=== PATIENT | female | born 1965 | race Caucasian/White ===

== ENCOUNTER 2020-05-15 07:27 | Outpatient (CLI) | payer OTHER, SELFPAY ==
[2020-05-15 07:38] LABS: Basophils Absolute Auto 0.04 K/mm3 (0.00-0.10); Basophils Percent Auto 0.5 % (0.0-1.0); Eosinophils Absolute Auto 0.11 K/mm3 (0.02-0.50); Eosinophils Percent Auto 1.5 % (1.0-6.0); Hematocrit 38.9 % (35.0-49.0); Hemoglobin 12.6 g/dL (12.0-15.0); Immature Granulocyte Absolute 0.03 K/mm3 (0.00-0.00); Immature Granulocyte Percent A 0.4 % (0.0-0.0); Lymphocytes Absolute Auto 3.05 K/mm3 (1.10-4.50); Lymphocytes Percent Auto 41.8 % (18.0-42.0); Mean Corpuscular HGB Conc 32.4 g/dL (32.0-36.0); Mean Corpuscular Volume 95.8 fL (78.0-102.0); Mean Platelet Volume 9.2 fl (9.2-11.8); Monocytes Absolute Auto 0.54 K/mm3 (0.10-0.90); Monocytes Percent Auto 7.4 % (2.0-11.0); Neutrophils Absolute Auto 3.5 K/mm3 (1.7-7.2); Neutrophils Percent Auto 48.4 % (50.0-70.0); Platelet Count Result 308 K/mm3 (150-420); Red Blood Count 4.06 M/mm3 (4.20-5.40); White Blood Count 7.3 K/mm3 (4.8-10.8)
[2020-05-15 08:32] LABS: Alanine Aminotransferase 22 U/L (14-59); Albumin Level 3.6 g/dL (3.4-5.0); Alkaline Phosphatase 107 U/L (46-116); Anion Gap 8 mmol/L (8-16); Aspartate Amino Transferase 17 U/L (15-37); Bilirubin,Total 0.3 mg/dL (0.00-1.00); Blood Urea Nitrogen 13 mg/dL (7-18); Calcium 9.7 mg/dL (8.5-10.1); Carbon Dioxide 29 mmol/L (21-32); Chloride 106 mmol/L (98-108); Cholesterol 173 mg/dL (0-200); Estimated Glomerular Filt Rate > 60; Glucose 88 mg/dL (70-99); HDL Direct 74 mg/dL (40-60); LDL Cholesterol Calculated 82 mg/dL (<130); Osmolality Calculated 295 mOsm/kg (285-295); Potassium 4.4 mmol/L (3.5-5.1); Sodium 143 mmol/L (136-145); Total Protein 6.9 g/dL (6.4-8.2); Triglycerides 86 mg/dL (0-150)
== END 2020-05-15 07:28 | disposition home or self-care (01) ==
PROVIDERS: PCP Nurse Practitioner Family; Visit Provider Nurse Practitioner Family
DX: E78.00 Pure hypercholesterolemia, unspecified (principal)
CPT/HCPCS: 36415; 80053; 80061; 85025

== ENCOUNTER 2020-07-31 14:59 | Outpatient (CLI) | payer OTHER, SELFPAY ==
[2020-07-31 16:08] LABS: Free T4 Free Thyroxine 0.89 ng/dL (0.76-1.46)
== END 2020-07-31 15:00 | disposition home or self-care (01) ==
LOC: CHSLAB 15:02
PROVIDERS: PCP Nurse Practitioner Family
DX: E03.9 Hypothyroidism, unspecified (principal)
CPT/HCPCS: 36415; 84439; 84443; 84481

== ENCOUNTER 2021-01-16 14:04 | Outpatient (CLI) | payer OTHER, SELFPAY ==
[2021-01-16 15:02] LABS: Free T4 Free Thyroxine 1.03 ng/dL (0.76-1.46); Thyroid Stimulating Hormone 2.53 uIU/mL (0.36-3.74)
== END 2021-01-16 14:05 | disposition home or self-care (01) ==
PROVIDERS: PCP Nurse Practitioner Family
DX: E03.9 Hypothyroidism, unspecified (principal)
CPT/HCPCS: 36415; 84439; 84443

== ENCOUNTER 2021-01-25 17:00 | Outpatient (CLI) | payer OTHER, SELFPAY ==
[2021-01-25 17:24] LABS: Hemoglobin A1C 6.1 % (<5.7)
[2021-01-25 18:00] LABS: Cholesterol 193 mg/dL (0-200); HDL Direct 79 mg/dL (40-60); LDL Cholesterol Calculated 96 mg/dL (<130); Triglycerides 92 mg/dL (0-150)
== END 2021-01-25 17:01 | disposition home or self-care (01) ==
LOC: CHSLAB 17:03
PROVIDERS: PCP Family Medicine; Visit Provider Family Medicine
DX: E11.9 Type 2 diabetes mellitus without complications (principal); E78.00 Pure hypercholesterolemia, unspecified
CPT/HCPCS: 36415; 80061; 83036

== ENCOUNTER 2021-02-06 10:30 | Outpatient (CLI) | payer SELFPAY | END 2021-02-06 10:31 | disposition home or self-care (01) | LOC: CHSOUTPT 10:33 | PROVIDERS: PCP Family Medicine; Visit Provider Family Medicine | DX: E66.01 Morbid (severe) obesity due to excess calories (principal); R73.03 Prediabetes | CPT/HCPCS: 99199 ==

== ENCOUNTER 2021-02-07 15:16 | Outpatient (CLI) | payer OTHER, SELFPAY ==
--- NOTE | ~2021-02-07 | XR_ITS ---
EXAMINATION: XR hand BI arthritis min 3V DATE: 02/07/2021 15:38 INDICATION: Bilateral hand pain. TECHNIQUE: 4 views of right hand and 4 views of left hand on a total of 7 radiographs were obtained. COMPARISON: None. FINDINGS: RIGHT HAND: Bone alignment is normal. No fracture. There is mild osteoarthritis of triscaphe joint, s econd metacarpophalangeal joint, first interphalangeal joint, and second and third distal interphalan geal joints. LEFT HAND: Bone alignment is normal. No fracture. There is mild osteoarthritis of first carpometacarp al joint, first and second metacarpophalangeal joints, first interphalangeal joint, and second and th ird distal interphalangeal joints. IMPRESSION: 1. Mild polyarticular osteoarthritis. Reviewed, dictated and finalized at location A.
== END 2021-02-07 15:17 | disposition home or self-care (01) ==
LOC: CHSIMG 15:18
PROVIDERS: PCP Family Medicine; Visit Provider Family Medicine
DX: M79.641 Pain in right hand (principal); M79.642 Pain in left hand; M15.9 Polyosteoarthritis, unspecified
CPT/HCPCS: 73130

== ENCOUNTER 2021-03-07 18:28 | Outpatient (NON) | payer OTHER, SELFPAY | END 2021-03-07 18:29 | disposition home or self-care (01) | LOC: CHSLAB 18:29 | PROVIDERS: PCP Family Medicine; Visit Provider Nurse Practitioner Family | DX: N95.0 Postmenopausal bleeding (principal) | CPT/HCPCS: 36415; 87480; 87510; 87660; 88175; G0145 ==

== ENCOUNTER 2021-03-19 12:43 | Outpatient (CLI) | payer OTHER, SELFPAY ==
--- NOTE | ~2021-03-19 | CT_ITS ---
EXAMINATION: CT sinus wo con DATE: 03/19/2021 13:02 INDICATION: Chronic sinusitis TECHNIQUE: Computed tomography (CT) of the paranasal sinuses was performed without intravenous contra st. The dose-length product was 295.03 mGy-cm. Iterative reconstruction technique was employed. COMPARISON: None FINDINGS: There is mild mucosal thickening of the maxillary sinuses. Mastoids are pneumatized. No air -fluid levels or mucoperiosteal reaction. There is basal septal deviation. No air-fluid levels. Ostio meatal units are patent. IMPRESSION: 1. Mild maxillary sinus disease. Reviewed, dictated and finalized at location A.
== END 2021-03-19 12:44 | disposition home or self-care (01) ==
LOC: CHSIMG 12:44
PROVIDERS: PCP Family Medicine; Visit Provider Family Medicine
DX: J32.9 Chronic sinusitis, unspecified (principal)
CPT/HCPCS: 70486

== ENCOUNTER 2021-03-20 10:40 | Outpatient (CLI) | payer OTHER, SELFPAY | END 2021-03-20 10:41 | disposition home or self-care (01) | LOC: CHSIMG 10:41 | PROVIDERS: PCP Family Medicine; Visit Provider Nurse Practitioner Family | DX: Z53.8 Procedure and treatment not carried out for other reasons (principal) | CPT/HCPCS: 99199 ==

== ENCOUNTER 2021-05-01 12:51 | Outpatient (CLI) | payer OTHER, SELFPAY ==
--- NOTE | ~2021-05-01 | MM_ITS ---
EXAMINATION: MM screening [facility] BI w kian HISTORY: Screening mammogram TECHNIQUE: Craniocaudal and mediolateral oblique 3-D tomosynthesis images were obtained and synthetic 2-D images were generated. CAD analysis was submitted and interpreted. COMPARISON: No prior mammogram is available for comparison at this institution. BREAST PARENCHYMAL COMPOSITION: There are scattered areas of fibroglandular density. FINDINGS: There is no evidence of suspicious mass, calcification, or architectural distortion to sugg est malignancy in either breast. There has been no suspicious interval change. IMPRESSION: 1. No mammographic evidence of malignancy. 2. Recommend routine screening mammography in one year. BI-RADS Category 1: Negative Reviewed, dictated and finalized at location A.
[2021-05-01 13:45] LABS: Rheumatoid Factor Screen Negative (Negative)
[2021-05-04 07:51] LABS: ANA Cascade Screen Negative (Negative)
== END 2021-05-01 12:52 | disposition home or self-care (01) ==
LOC: CHSIMG 12:54
PROVIDERS: PCP Family Medicine; Visit Provider Nurse Practitioner Family
DX: M79.641 Pain in right hand (principal); M79.642 Pain in left hand; Z12.31 Encounter for screening mammogram for malignant neoplasm of breast
CPT/HCPCS: 36415; 77063; 77067; 86038; 86430

== ENCOUNTER 2021-07-13 11:05 | Outpatient (CLI) | payer OTHER, SELFPAY ==
[2021-07-13 11:31] LABS: Hematocrit 39.8 % (35.0-49.0); Hemoglobin 12.8 g/dL (12.0-15.0); Mean Corpuscular HGB Conc 32.2 g/dL (32.0-36.0); Mean Corpuscular Hemoglobin 30.3 pg (27.0-31.0); Mean Corpuscular Volume 94.3 fL (78.0-102.0); Mean Platelet Volume 9.3 fl (9.2-11.8); Platelet Count Result 295 K/mm3 (150-420); Red Blood Count 4.22 M/mm3 (4.20-5.40); Red Cell Distribution Width 12.6 % (11.6-14.4)
[2021-07-13 12:42] LABS: Alanine Aminotransferase 30 U/L (14-59); Albumin Level 3.6 g/dL (3.4-5.0); Alkaline Phosphatase 117 U/L (46-116); Anion Gap 7 mmol/L (8-16); Aspartate Amino Transferase 17 U/L (15-37); Bilirubin,Total 0.4 mg/dL (0.00-1.00); Blood Urea Nitrogen 14 mg/dL (7-18); Calcium 8.8 mg/dL (8.5-10.1); Carbon Dioxide 31 mmol/L (21-32); Chloride 108 mmol/L (98-108); Cholesterol 192 mg/dL (0-200); Estimated Glomerular Filt Rate > 60; Free T3 2.64 pg/mL (2.18-3.98); Free T4 Free Thyroxine 0.86 ng/dL (0.76-1.46); Glucose 89 mg/dL (70-99); HDL Direct 66 mg/dL (40-60); LDL Cholesterol Calculated 110 mg/dL (<130); Osmolality Calculated 301 mOsm/kg (285-295); Potassium 4.9 mmol/L (3.5-5.1); Sodium 146 mmol/L (136-145); Thyroid Stimulating Hormone 3.29 uIU/mL (0.36-3.74); Total Protein 6.6 g/dL (6.4-8.2); Triglycerides 79 mg/dL (0-150)
== END 2021-07-13 11:06 | disposition home or self-care (01) ==
PROVIDERS: PCP Family Medicine; Visit Provider Family Medicine
DX: E03.9 Hypothyroidism, unspecified (principal); E78.00 Pure hypercholesterolemia, unspecified
CPT/HCPCS: 36415; 80053; 80061; 84439; 84443; 84481; 85027

== ENCOUNTER 2021-08-08 18:35 | Emergency (ER) | payer OTHER, SELFPAY ==
[2021-08-08] VITALS (7 sets, daily range): BP systolic 132–171; BP diastolic 78–99; PULSE 72–94; RESP 18–20; TEMP 36.2–36.9; O2SAT 94–99
--- NOTE | ~2021-08-08 | CT_ITS ---
EXAMINATION: CTA chest PE protocol DATE: 08/08/2021 20:43 INDICATION: Chest pain radiating to back. Elevated d-dimer. TECHNIQUE: Computed tomography angiography (CTA) of the chest was performed with 100 mL Omnipaque-350 intravenous contrast timed to evaluate the pulmonary arteries. Coronal maximum intensity projection 3D-reconstructions were created by the technologist. Automated exposure control and iterative reconst ruction technique were employed. Exam dose: 942.02 mGy-cm total exam DLP. COMPARISON: None. FINDINGS: There is diagnostic contrast enhancement of the pulmonary arteries and no evidence of pulmo nary embolism. No thoracic aortic aneurysm or dissection. No hilar or mediastinal mass lesion or lymphadenopathy. Mild cardiomegaly. No pericardial or pleural effusion. Mild discoid atelectasis or scarring of the lingula. No pulmonary infiltrate or consolidation. Small sliding hiatal hernia. Normal morphology of the adrenal glands. IMPRESSION: No evidence of pulmonary embolism Small sliding hiatal hernia Reviewed, dictated and finalized at Location A. Reviewed, dictated and finalized at location A.
--- NOTE | ~2021-08-08 | CT_ITS ---
EXAMINATION: CT abdomen pelvis w con DATE: 08/08/2021 21:09 INDICATION: Abdominal pain radiating to the posterior aspect of the abdomen TECHNIQUE: Computed tomography (CT) of the abdomen and pelvis was performed with 100 cc Omnipaque 350 intravenous contrast. Automated exposure control and iterative reconstruction technique were employe d. Exam dose: 1438.24 mGy-cm total exam DLP. COMPARISON: None. FINDINGS: There is mild discoid atelectasis or scarring in the anterior basilar segment of the left l ower lobe and minimal bilateral lower lobe dependent atelectasis. Heart size is borderline. No pericardial or pleural effusion. Small sliding hiatal hernia. The liver, gallbladder, bile ducts, pancreas, pancreatic duct and spleen are unremarkable. Normal mor phology of the adrenal glands. There is an indeterminate approximately 7 mm hypodense lesion in the posterior lower pole of the left kidney. This might be a hyperdense cyst although solid neoplasm is not excluded. Otherwise no renal mass lesion is evident. No hydroureteronephrosis. The urinary bladder, uterus and adnexal areas are unremarkable. There is atherosclerotic calcification of the abdominal aorta and iliac arteries but no abdominal aor tic aneurysm. No intraperitoneal or retroperitoneal or pelvic mass lesion or adenopathy or ascites. Diverticulosis of the sigmoid and descending colon and to a lesser extent transverse and ascending co maddi; no CT evidence of diverticulitis. No bowel obstruction, bowel wall thickening, pneumatosis or in traperitoneal free air. Very small fat-containing umbilical hernia. Included skeletal structures are unremarkable, without evidence of suspicious osteolytic or osteoblas tic lesion. IMPRESSION: Small sliding hiatal hernia Indeterminate 7 mm hypodense lesion of the posterior lower pole left kidney Diverticulosis of the colon; no CT evidence of diverticulitis Reviewed, dictated and finalized at Location A. Reviewed, dictated and finalized at location A.
--- NOTE | 2021-08-08 18:38 | ECG_ITS ---
Measurements Intervals [place] Rate: 83 P: 0 OK: 170 QRS: 1 QRSD: 88 T: 11 QT: 382 QTc: 450 Interpretive Statements SINUS RHYTHM LOW QRS VOLTAGE IN PRECORDIAL LEADS LEFT VENTRICULAR HYPERTROPHY MINIMAL Q WAVES- HIGH LATERAL LEADS BORDERLINE ECG Electronically Signed On 08-09-2021 6:40:48 CDT by Leonid Kovacs D.O.
--- NOTE | 2021-08-08 18:44 | ED.CHESTPAIN ---
HPI - Chest Pain General Chief Complaint: Chest Pain Stated Complaint: Chest pain Time Seen by Provider: 08/08/21 18:44 Source: patient Mode of arrival: ambulatory Limitations: no limitations History of Present Illness HPI narrative: 56-year-old woman with a history of dyslipidemia and a family history of AL (father, 43 years old) comes to the ER complaining of substernal chest pain and pain in her back between her shoulder blades. It has been off and on for the last 2 weeks. She states that it is much worse today and her episode today caused her to have a headache. She has had no leg pain or swelling, nausea, vomiting, shortness of breath, sweats, lightheadedness or syncope. She denies recent injury. she had a nuclear stress test 10 years ago and again 6 years ago, both of which were negative. she denies history of hypertension, diabetes and smoking. MD complaint: chest pain Onset (ago): week(s) (2) Timing of current episode: episodic Prior episodes: Yes Onset: during rest Pain location: substernal Pain radiation: back Severity: severe Quality: dull Relieving factors: sitting upright Exacerbating factors: other ( Standing) Treatment prior to arrival: none Risk Factors Coronary artery disease risk factors: hyperlipidemia and family history of CAD before age 50 Thoracic aortic dissection risk factors: weight lifting Related Data Home Medications Medication Instructions Recorded Confirmed fluticasone propionate 50 See Rx Instructions .ROUTE .COMPLEX 03/03/20 08/08/21 mcg/actuation nasal spray,suspension melatonin 10 mg capsule 10 mg PO DAILY PRN cap 03/03/20 08/08/21 Allergies Allergy/AdvReac Type Severity Reaction Status Date / Time Sulfa (Sulfonamide Allergy Severe rash Verified 08/08/21 19:07 Antibiotics) Review of Systems Review of Systems: All systems reviewed & are unremarkable except as noted in HPI and below Constitutional: Constitutional: Denies chills, Denies fever(s) and Denies weakness Eyes: Eyes: Denies change in vision and Denies photophobia ENT: Denies dysphagia, Denies nasal congestion and Denies sore throat Cardiovascular: Cardiovascular: Reports chest pain and Denies radiating jaw, neck or arm pain Respiratory: Respiratory: Denies cough and Denies dyspnea Gastrointestinal: Gastrointestinal: Denies abdominal pain, Denies diarrhea, Denies nausea and Denies vomiting Genitourinary: Genitourinary: Denies hematuria and Denies dysuria Musculoskeletal: Musculoskeletal: Reports back pain, Denies arthralgias and Denies joint swelling Integumentary/Breasts: Skin/Breast: Denies pruritus, Denies erythema and Denies rash Neurologic: Denies vertigo, Denies dizziness and Denies syncope Endocrine: Endocrine: Denies polydipsia and Denies polyuria Hematologic/Lymphatic: Hematologic/Lymphatic: Denies easy bleeding and Denies easy bruising Allergic/Immunologic: Allergic/Immunologic: Denies lip swelling and Denies throat swelling PMFSH Past Medical History Medical History Chronic GERD Chronic sinusitis, unspecified Cee's disease Hypercholesteremia Hypothyroidism Insomnia Restless leg syndrome, controlled Seasonal allergies Trigger finger Surgical History Surgical History H/O knee surgery left H/O tubal ligation History of thyroidectomy, subtotal Social History Social History Smoking packs per day: 1 Smoking cigarettes per day: 20.0 Years smoked: 40 Smoking pack-years: 40.00 Smoking status: Former smoker Tobacco type: cigarettes Alcohol intake: current Alcohol use details: social Substance use: never Substance use type: does not use Gender identity (if verbalized by the patient): Female Exam Const: General: healthy appearing, no acute distress and alert Orientation/consciou
[2021-08-08] MEDS: ASPIRIN 81 MG CHEWABLE TABLET 324 MG PO (19:20)
[2021-08-08 19:23] LABS: Basophils Absolute Auto 0.05 K/mm3 (0.00-0.10); Basophils Percent Auto 0.7 % (0.0-1.0); Eosinophils Absolute Auto 0.13 K/mm3 (0.02-0.50); Eosinophils Percent Auto 1.8 % (1.0-6.0); Hematocrit 39.8 % (35.0-49.0); Immature Granulocyte Absolute 0.03 K/mm3 (0.00-0.00); Immature Granulocyte Percent A 0.4 % (0.0-0.0); Lymphocytes Absolute Auto 2.19 K/mm3 (1.10-4.50); Lymphocytes Percent Auto 30.1 % (18.0-42.0); Mean Corpuscular HGB Conc 32.7 g/dL (32.0-36.0); Mean Corpuscular Hemoglobin 30.7 pg (27.0-31.0); Mean Corpuscular Volume 93.9 fL (78.0-102.0); Mean Platelet Volume 9.6 fl (9.2-11.8); Monocytes Percent Auto 6.9 % (2.0-11.0); Neutrophils Absolute Auto 4.4 K/mm3 (1.7-7.2); Neutrophils Percent Auto 60.1 % (50.0-70.0); Platelet Count Result 314 K/mm3 (150-420); Red Blood Count 4.24 M/mm3 (4.20-5.40); Red Cell Distribution Width 12.8 % (11.6-14.4); White Blood Count 7.3 K/mm3 (4.8-10.8)
[2021-08-08] MEDS: NITROGLYCERIN SL 0.4 MG TABLET SUBLINGUAL (19:25)
[2021-08-08 19:39] LABS: D Dimer 0.83 mg/L (0.19-0.50)
[2021-08-08 19:50] LABS: Alanine Aminotransferase 33 U/L (14-59); Albumin Level 3.8 g/dL (3.4-5.0); Alkaline Phosphatase 133 U/L (46-116); Anion Gap 11 mmol/L (8-16); Aspartate Amino Transferase 16 U/L (15-37); Bilirubin,Total 0.3 mg/dL (0.00-1.00); Blood Urea Nitrogen 16 mg/dL (7-18); Calcium 9.3 mg/dL (8.5-10.1); Carbon Dioxide 27 mmol/L (21-32); Chloride 105 mmol/L (98-108); Estimated CRCL calculation 73 ml/min; Estimated Glomerular Filt Rate > 60; Glucose 104 mg/dL (70-99); NT Pro B Type Natriuretic Pept 54 pg/mL (0-125); Osmolality Calculated 297 mOsm/kg (285-295); Potassium 4.1 mmol/L (3.5-5.1); Sodium 143 mmol/L (136-145); Total Protein 7.6 g/dL (6.4-8.2); Troponin I 4.8 ng/L (0.00-60.4)
--- NOTE | 2021-08-08 21:44 | PC.NURSE ---
1929 NITRO #1 GIVEN CHEST PAIN 5/10 B/P 157/78 PULSE 70 1934 CHEST PAIN 0/10 B/P 132/78 PULSE 80
== END 2021-08-08 23:30 | disposition home or self-care (01) ==
LOC: CHSED 18:36
PROVIDERS: Emergency Provider Emergency Medicine; PCP Family Medicine
DX: R07.89 Other chest pain (principal); M54.6 Pain in thoracic spine
CPT/HCPCS: 36415; 71275; 74177; 80053; 83880; 84484; 85025; 85380; 93005; 99283; 99284; A9270; Q9967

== ENCOUNTER 2021-11-15 10:01 | Outpatient (CLI) | payer OTHER, SELFPAY ==
--- NOTE | 2021-11-15 13:25 | WPDPFTINT ---
PFT Procedure Performed PFT Procedure Performed Spirometry with Pre/Post Bronchodilator Plethysmography (Lung Vol) Diffusing Cap (DLCO) Flow Vol Loop PFT Interpretation DOS: 11/15/2021 REQUESTING: Dr Markos Perez REASON FOR TESTING: Dyspnea PULMONARY FUNCTION TESTS Results are reliable and reproducible. Spirometry: FEV1 before bronchodilator is 108% predicted, 2.58 L. This is normal. FVC is 111% predicted. The FEV1/V=FVC is normal. The JMN62-44% is normal at 96% predicted. After bronchodilator administration, there is no statistical increased in flows for FEV1 or FVC. The VZX27-80% increases by 23%. Lung volumes: The total lung capacity is 91% predicted., normal. RV is 59%, and the RV/TLC is 24%, normal. There is no abnormal findings in the lung volumes. Airway resistance is increased 181%. Diffusion: DLCO is 77%, mildly decreased. This corrects for alveolar volume, DLCO/VA is 122%. Flow volume loop: Normal. IMPRESSION: This study shows normal spirometry, normal lung volumes and a mild decreased in diffusion. Isolated decreased in diffusion can be seen in anemia, pulmonary vascular disease, early interstitial lung disease and other conditions. Clinical correlation is advised. Rachel Centeno MD
== END 2021-11-15 10:02 | disposition home or self-care (01) ==
LOC: CHSCARD 10:04
PROVIDERS: PCP Family Medicine; Visit Provider Family Medicine
DX: R06.00 Dyspnea, unspecified (principal)
CPT/HCPCS: 94060; 94726; 94729

== ENCOUNTER 2021-12-17 13:48 | Outpatient (CLI) | payer OTHER, SELFPAY ==
[2021-12-23 01:33] LABS: SARS-CoV-2 IgG >100.00 Index (<1.00)
== END 2021-12-17 13:49 | disposition home or self-care (01) ==
LOC: CHSLAB 13:50
PROVIDERS: PCP Family Medicine; Visit Provider Family Medicine
DX: R94.2 Abnormal results of pulmonary function studies (principal); R05.3 Chronic cough
CPT/HCPCS: 36415; 86769

== ENCOUNTER 2021-12-26 10:08 | Outpatient (CLI) | payer OTHER, SELFPAY ==
[2021-12-26 12:45] LABS: Free T4 Free Thyroxine 0.83 ng/mL (0.78-2.19)
[2021-12-29 07:33] LABS: Triiodothyronine T3 Free 3.2 pg/mL (2.3-4.2)
== END 2021-12-26 10:09 | disposition home or self-care (01) ==
LOC: ANHWCLAB 10:10
PROVIDERS: PCP Family Medicine; Referring Provider Internal Medicine Endocrinology, Diabetes & Metabolism; Visit Provider Internal Medicine Endocrinology, Diabetes & Metabolism
DX: E04.9 Nontoxic goiter, unspecified (principal); E06.3 Autoimmune thyroiditis; E89.0 Postprocedural hypothyroidism
CPT/HCPCS: 36415; 84439; 84443; 84481

== ENCOUNTER 2022-01-03 12:47 | Outpatient (CLI) | payer OTHER, SELFPAY ==
--- NOTE | ~2022-01-03 | US_ITS ---
EXAMINATION: US thyroid EXAM DATE: 01/03/2022 13:07 INDICATION: E06.3 - Autoimmune thyroiditis . Left thyroid lobectomy due to size. TECHNIQUE: Multiple grayscale and Doppler images of the thyroid were obtained (by a technologist who performed the scan) and subsequently reviewed. Individual nodules and recommendations may be reporte d in accordance with TI-RADS system as designated by the 2017 ACR White Paper TI-RADS committee. The re is no prior study for comparison. FINDINGS: The right thyroid lobe measures 3.9 x 1.7 x 1.6 cm, moderately diffusely heterogeneous echogenicity a nd mildly increased vascularity. There are scattered subcentimeter nodules not likely clinically sign ificant. The left thyroidectomy bed is unremarkable. IMPRESSION: Small right thyroid lobe nodules not likely clinically significant. Reviewed, dictated and finalized at location B.
== END 2022-01-03 12:48 | disposition home or self-care (01) ==
LOC: CHSIMG 12:48
PROVIDERS: PCP Family Medicine; Visit Provider Internal Medicine Endocrinology, Diabetes & Metabolism
DX: E06.3 Autoimmune thyroiditis (principal); E89.0 Postprocedural hypothyroidism
CPT/HCPCS: 76536

== ENCOUNTER 2022-01-22 14:59 | Outpatient (CLI) | payer OTHER, SELFPAY ==
[2022-01-22 15:25] LABS: Hemoglobin 12.3 g/dL (12.0-15.0); Mean Corpuscular HGB Conc 32.4 g/dL (32.0-36.0); Mean Corpuscular Hemoglobin 31.5 pg (27.0-31.0); Mean Corpuscular Volume 97.4 fL (78.0-102.0); Mean Platelet Volume 9.4 fl (9.2-11.8); Platelet Count Result 345 K/mm3 (150-420); Red Cell Distribution Width 13.7 % (11.6-14.4); White Blood Count 7.7 K/mm3 (4.8-10.8)
[2022-01-22 15:58] LABS: Alanine Aminotransferase 23 U/L (14-59); Alkaline Phosphatase 109 U/L (46-116); Anion Gap 8 mmol/L (8-16); Aspartate Amino Transferase 14 U/L (15-37); Bilirubin,Total 0.3 mg/dL (0.00-1.00); Blood Urea Nitrogen 16 mg/dL (7-18); Calcium 9.6 mg/dL (8.5-10.1); Carbon Dioxide 29 mmol/L (21-32); Chloride 103 mmol/L (98-108); Cholesterol 203 mg/dL (0-200); Estimated Glomerular Filt Rate 57; Glucose 112 mg/dL (70-99); HDL Direct 81 mg/dL (40-60); LDL Cholesterol Calculated 107 mg/dL (<130); Osmolality Calculated 292 mOsm/kg (285-295); Potassium 4.8 mmol/L (3.5-5.1); Sodium 140 mmol/L (136-145); Total Protein 7.3 g/dL (6.4-8.2); Triglycerides 75 mg/dL (0-150)
== END 2022-01-22 15:00 | disposition home or self-care (01) ==
LOC: CHSLAB 15:02
PROVIDERS: PCP Family Medicine; Visit Provider Family Medicine
DX: E78.00 Pure hypercholesterolemia, unspecified (principal)
CPT/HCPCS: 36415; 80053; 80061; 85027

== ENCOUNTER 2022-04-01 13:29 | Outpatient (CLI) | payer OTHER, SELFPAY ==
[2022-04-01 14:06] LABS: Free T3 2.59 pg/mL (2.18-3.98); Free T4 Free Thyroxine 0.93 ng/dL (0.76-1.46)
== END 2022-04-01 13:30 | disposition home or self-care (01) ==
LOC: CHSLAB 13:31
PROVIDERS: PCP Family Medicine; Visit Provider Internal Medicine Endocrinology, Diabetes & Metabolism
DX: E06.3 Autoimmune thyroiditis (principal); E89.0 Postprocedural hypothyroidism; E04.9 Nontoxic goiter, unspecified
CPT/HCPCS: 36415; 84439; 84443; 84481

== ENCOUNTER 2022-05-06 12:30 | Outpatient (CLI) | payer OTHER, SELFPAY ==
--- NOTE | ~2022-05-06 | MM_ITS ---
EXAMINATION: MM screening reilly BI w kian HISTORY: Screening TECHNIQUE: Craniocaudal and mediolateral oblique 3-D tomosynthesis images were obtained and synthetic 2-D images were generated. CAD analysis was submitted and interpreted. COMPARISON: 05/01/2021 BREAST PARENCHYMAL COMPOSITION: There are scattered areas of fibroglandular density. FINDINGS: There is no evidence of suspicious mass, calcification, or architectural distortion to sugg est malignancy in either breast. There has been no suspicious interval change. IMPRESSION: 1. No mammographic evidence of malignancy. 2. Recommend routine screening mammography in one year. BI-RADS Category 1: Negative Reviewed, dictated and finalized at location A.
== END 2022-05-06 12:31 | disposition home or self-care (01) ==
LOC: CHSIMG 12:31
PROVIDERS: PCP Family Medicine; Visit Provider Family Medicine
DX: Z12.31 Encounter for screening mammogram for malignant neoplasm of breast (principal)
CPT/HCPCS: 77063; 77067

== ENCOUNTER 2022-06-20 11:36 | Outpatient (CLI) | payer OTHER, SELFPAY ==
[2022-06-20 12:06] LABS: Hemoglobin A1C 6.2 % (<5.7)
[2022-06-20 12:13] LABS: Alanine Aminotransferase 23 U/L (14-59); Albumin Level 3.9 g/dL (3.4-5.0); Alkaline Phosphatase 121 U/L (46-116); Anion Gap 7 mmol/L (8-16); Aspartate Amino Transferase 16 U/L (15-37); Bilirubin,Total 0.4 mg/dL (0.00-1.00); Blood Urea Nitrogen 18 mg/dL (7-18); Calcium 9.5 mg/dL (8.5-10.1); Carbon Dioxide 29 mmol/L (21-32); Chloride 105 mmol/L (98-108); Cholesterol 213 mg/dL (0-200); Estimated Glomerular Filt Rate > 60; Glucose 105 mg/dL (70-99); HDL Direct 73 mg/dL (40-60); LDL Cholesterol Calculated 123 mg/dL (<130); Osmolality Calculated 293 mOsm/kg (285-295); Sodium 141 mmol/L (136-145); Total Protein 7.2 g/dL (6.4-8.2); Triglycerides 87 mg/dL (0-150)
== END 2022-06-20 11:37 | disposition home or self-care (01) ==
LOC: CHSLAB 11:40
DX: E78.5 Hyperlipidemia, unspecified (principal); E66.9 Obesity, unspecified
CPT/HCPCS: 36415; 80053; 80061; 83036

== ENCOUNTER 2022-09-03 12:13 | Outpatient (CLI) | payer OTHER, SELFPAY ==
--- NOTE | ~2022-09-03 | CT_ITS ---
EXAMINATION: CT lung screening DATE: 09/03/2022 12:37 INDICATION: History of tobacco dependence. TECHNIQUE: Computed tomography (CT) of the chest was performed without intravenous contrast. The dose -length product was 265.99 mGy-cm. Automated exposure control and iterative reconstruction technique were employed. COMPARISON: CT dated 08/08/2021 FINDINGS: No thoracic lymphadenopathy. There are calcified mediastinal lymph nodes, consistent with c hronic granulomatous disease. There is atherosclerosis of the aorta and coronary arteries. There is a small hiatal hernia. No significant pleural or pericardial effusion. The upper abdomen is unremarkab le. No endobronchial lesions. There are calcified granulomas in the right upper lobe. There is a 5 mm fissural nodule on the left, image 57, unchanged no focal consolidation. No pneumothorax. Mild thora cic spondylosis with accentuated thoracic kyphosis. No focal lytic or blastic lesions.. IMPRESSION: 1. Lung-RADS category 2: Benign appearance or behavior. Continue annual screening with noncontrast lo w-dose chest CT in 12 months. Reviewed, dictated and finalized at location A. BOARDER IMPRESSION: 1. Lung-RADS category 2: Benign appearance or behavior. Continue annual screeni ng with noncontrast low-dose chest CT in 12 months.
== END 2022-09-03 12:14 | disposition home or self-care (01) ==
LOC: CHSIMG 12:14
PROVIDERS: PCP Family Medicine; Visit Provider Internal Medicine Pulmonary Disease
DX: Z12.2 Encounter for screening for malignant neoplasm of respiratory organs (principal); Z87.891 Personal history of nicotine dependence
CPT/HCPCS: 71271

== ENCOUNTER 2022-12-25 09:06 | Outpatient (CLI) | payer OTHER, SELFPAY ==
[2022-12-25 09:35] LABS: Hemoglobin A1C 6.1 % (<5.7)
[2022-12-25 10:27] LABS: Alanine Aminotransferase 25 U/L (14-59); Albumin Level 3.7 g/dL (3.4-5.0); Alkaline Phosphatase 114 U/L (46-116); Anion Gap 9 mmol/L (8-16); Aspartate Amino Transferase 15 U/L (15-37); Bilirubin,Total 0.4 mg/dL (0.00-1.00); Blood Urea Nitrogen 16 mg/dL (7-18); Calcium 9.2 mg/dL (8.5-10.1); Carbon Dioxide 30 mmol/L (21-32); Chloride 106 mmol/L (98-108); Cholesterol 184 mg/dL (0-200); Estimated Glomerular Filt Rate > 60; Glucose 99 mg/dL (70-99); HDL Direct 71 mg/dL (40-60); LDL Cholesterol Calculated 91 mg/dL (<130); Osmolality Calculated 301 mOsm/kg (285-295); Potassium 5.2 mmol/L (3.5-5.1); Sodium 145 mmol/L (136-145); Triglycerides 108 mg/dL (0-150)
== END 2022-12-25 09:07 | disposition home or self-care (01) ==
LOC: CHSLAB 09:09
PROVIDERS: PCP Family Medicine; Visit Provider Family Medicine
DX: R73.01 Impaired fasting glucose (principal)
CPT/HCPCS: 36415; 80053; 80061; 83036

== ENCOUNTER 2023-05-12 14:12 | Outpatient (CLI) | payer OTHER, SELFPAY ==
--- NOTE | ~2023-05-12 | MM_ITS ---
EXAMINATION: MM screening [facility] BI w kian HISTORY: Screening mammogram TECHNIQUE: Craniocaudal and mediolateral oblique 3-D tomosynthesis images were obtained and synthetic 2-D images were generated. CAD analysis was submitted and interpreted. COMPARISON: 05/06/2022, 05/01/2021 BREAST PARENCHYMAL COMPOSITION: There are scattered areas of fibroglandular density. FINDINGS: No suspicious mass, calcification, or architectural distortion are identified in either lamberto ast to suggest malignancy. There has been no suspicious interval change. IMPRESSION: 1. No mammographic evidence of malignancy. 2. Recommend routine screening mammography in one year. BI-RADS Category 1: Negative Reviewed, dictated and finalized at location A.
== END 2023-05-12 14:13 | disposition home or self-care (01) ==
LOC: CHSIMG 14:15
PROVIDERS: PCP Family Medicine; Visit Provider Family Medicine
DX: Z12.31 Encounter for screening mammogram for malignant neoplasm of breast (principal)
CPT/HCPCS: 77063; 77067

== ENCOUNTER 2023-06-25 13:03 | Outpatient (CLI) | payer OTHER, SELFPAY ==
[2023-06-25 13:30] LABS: Hemoglobin A1C 5.9 % (<5.7)
[2023-06-25 13:54] LABS: Alanine Aminotransferase 20 U/L (14-59); Albumin Level 3.6 g/dL (3.4-5.0); Alkaline Phosphatase 128 U/L (46-116); Anion Gap 10 mmol/L (8-16); Aspartate Amino Transferase 14 U/L (15-37); Bilirubin,Total 0.5 mg/dL (0.00-1.00); Blood Urea Nitrogen 10 mg/dL (7-18); Calcium 9.6 mg/dL (8.5-10.1); Carbon Dioxide 28 mmol/L (21-32); Chloride 105 mmol/L (98-108); Cholesterol 186 mg/dL (0-200); Estimated Glomerular Filt Rate > 60; Glucose 98 mg/dL (70-99); HDL Direct 71 mg/dL (40-60); LDL Cholesterol Calculated 101 mg/dL (<130); Osmolality Calculated 295 mOsm/kg (285-295); Potassium 4.4 mmol/L (3.5-5.1); Sodium 143 mmol/L (136-145); Total Protein 6.9 g/dL (6.4-8.2); Triglycerides 68 mg/dL (0-150)
== END 2023-06-25 13:04 | disposition home or self-care (01) ==
LOC: CHSLAB 13:05
PROVIDERS: PCP Family Medicine; Visit Provider Family Medicine
DX: R73.01 Impaired fasting glucose (principal)
CPT/HCPCS: 36415; 80053; 80061; 83036

== ENCOUNTER 2023-07-14 14:02 | Outpatient (CLI) | payer OTHER, SELFPAY ==
[2023-07-14 14:57] LABS: Alanine Aminotransferase 29 U/L (14-59); Albumin Level 3.7 g/dL (3.4-5.0); Alkaline Phosphatase 126 U/L (46-116); Anion Gap 14 mmol/L (8-16); Aspartate Amino Transferase 24 U/L (15-37); Bilirubin,Total 0.3 mg/dL (0.00-1.00); Blood Urea Nitrogen 14 mg/dL (7-18); Calcium 9.4 mg/dL (8.5-10.1); Carbon Dioxide 24 mmol/L (21-32); Chloride 102 mmol/L (98-108); Cholesterol 180 mg/dL (0-200); Estimated Glomerular Filt Rate > 60; Free T3 2.89 pg/mL (2.18-3.98); Glucose 103 mg/dL (70-99); HDL Direct 69 mg/dL (40-60); LDL Cholesterol Calculated 96 mg/dL (<130); Osmolality Calculated 290 mOsm/kg (285-295); Potassium 4.1 mmol/L (3.5-5.1); Sodium 140 mmol/L (136-145); Thyroid Stimulating Hormone 3.08 uIU/mL (0.36-3.74); Total Protein 6.9 g/dL (6.4-8.2); Triglycerides 76 mg/dL (0-150)
[2023-07-19 06:33] LABS: T4 Thyroxine 6.9 mcg/dL (5.9-10.3)
== END 2023-07-14 14:03 | disposition home or self-care (01) ==
LOC: CHSLAB 14:03
PROVIDERS: PCP Family Medicine; Visit Provider Family Medicine
DX: E03.8 Other specified hypothyroidism (principal)
CPT/HCPCS: 36415; 80053; 80061; 84436; 84443; 84481

== ENCOUNTER 2023-09-05 15:21 | Outpatient (CLI) | payer OTHER, SELFPAY ==
--- NOTE | ~2023-09-05 | CT_ITS ---
EXAMINATION: CT lung screening DATE: 09/05/2023 15:37 INDICATION: Z87.891 - Personal history of nicotine dependence TECHNIQUE: Computed tomography (CT) of the chest was performed without intravenous contrast. Addition al 3D reconstructions utilizing coronal maximum intensity projection (MIP) were performed. Automated exposure control and iterative reconstruction technique were employed. The dose-length product was 29 4.82 mGy-cm. COMPARISON: 09/03/2022 FINDINGS: A few small calcified pulmonary nodules at the right apex along with calcified right hilar and medias tinal lymph nodes consistent with old granulomatous disease. Unchanged 5 x 5 x 2 mm lenticular nodule along the left major fissure likely an intrafissural lymph node. Additional unchanged 2-3 mm noncalc ified nodule in the right lower lobe on image 76. No pneumonia, pulmonary edema or other pulmonary in filtrates. No pleural effusion. Heart size is normal. Atherosclerotic coronary artery calcific a pollack . No pericardial effusion. Small sliding-type hiatal hernia. No pathologically enlarged thoracic lymp hadenopathy. Moderate thoracic spondylosis. IMPRESSION: 1. Lung-RADS category 2: Benign appearance or behavior. Continue annual screening with noncontrast lo w-dose chest CT in 12 months. Reviewed, dictated and finalized at location A. DATION MANAGER IMPRESSION: 1. Lung-RADS category 2: Benign appearance or behavior. Continue annual screeni ng with noncontrast low-dose chest CT in 12 months.
== END 2023-09-05 15:22 | disposition home or self-care (01) ==
LOC: CHSIMG 15:22
PROVIDERS: PCP Family Medicine; Visit Provider Internal Medicine Pulmonary Disease
DX: Z12.2 Encounter for screening for malignant neoplasm of respiratory organs (principal); Z87.891 Personal history of nicotine dependence
CPT/HCPCS: 71271

== ENCOUNTER 2023-12-25 09:26 | Outpatient (CLI) | payer OTHER, SELFPAY ==
[2023-12-25 11:24] LABS: Alanine Aminotransferase 26 U/L (14-59); Albumin Level 3.9 g/dL (3.4-5.0); Alkaline Phosphatase 120 U/L (46-116); Anion Gap 9 mmol/L (8-16); Aspartate Amino Transferase 15 U/L (15-37); Bilirubin,Total 0.5 mg/dL (0.00-1.00); Blood Urea Nitrogen 19 mg/dL (7-18); Calcium 9.3 mg/dL (8.5-10.1); Carbon Dioxide 29 mmol/L (21-32); Chloride 103 mmol/L (98-108); Cholesterol 215 mg/dL (0-200); Estimated Glomerular Filt Rate > 60; Glucose 100 mg/dL (70-99); HDL Direct 72 mg/dL (40-60); LDL Cholesterol Calculated 126 mg/dL (<130); Osmolality Calculated 294 mOsm/kg (285-295); Potassium 4.2 mmol/L (3.5-5.1); Sodium 141 mmol/L (136-145); Thyroid Stimulating Hormone 3.42 uIU/mL (0.36-3.74); Total Protein 7.3 g/dL (6.4-8.2); Triglycerides 85 mg/dL (0-150)
== END 2023-12-25 09:27 | disposition home or self-care (01) ==
LOC: CHSLAB 09:28
PROVIDERS: PCP Family Medicine; Visit Provider Family Medicine
DX: E03.8 Other specified hypothyroidism (principal)
CPT/HCPCS: 36415; 80053; 80061; 84443

== ENCOUNTER 2024-03-10 08:31 | Outpatient (CLI) | payer OTHER, SELFPAY ==
--- NOTE | ~2024-03-10 | US_ITS ---
EXAMINATION: US venous doppler LE RT DATE: 03/10/2024 08:48 INDICATION: Right lower limb pain. TECHNIQUE: Grayscale ultrasound images without and with compression and Doppler ultrasound images of the right lower extremity veins were obtained. COMPARISON: None. FINDINGS: The visualized portions of right common femoral vein, profunda (deep) femoral vein, femoral vein, pop liteal vein, peroneal veins, posterior tibial veins, and greater saphenous vein outflow are patent. IMPRESSION: 1. No deep venous thrombosis. Reviewed, dictated and finalized at location A.
== END 2024-03-10 08:32 | disposition home or self-care (01) ==
LOC: CHSIMG 08:31
PROVIDERS: PCP Family Medicine; Visit Provider Family Medicine
DX: M79.661 Pain in right lower leg (principal)
CPT/HCPCS: 93971

== ENCOUNTER 2024-05-13 13:01 | Outpatient (CLI) | payer OTHER, SELFPAY ==
--- NOTE | ~2024-05-13 | MM_ITS ---
EXAMINATION: MM screening [facility] BI w kian HISTORY: Screening TECHNIQUE: Craniocaudal and mediolateral oblique 3-D tomosynthesis images were obtained and synthetic 2-D images were generated. CAD analysis was submitted and interpreted. COMPARISON: Comparison to multiple prior studies sequentially, with oldest reviewed study dated 05/01. BREAST PARENCHYMAL COMPOSITION: Not dense: There are scattered areas of fibroglandular density. FINDINGS: There is no evidence of suspicious mass, calcification, or architectural distortion to sugg est malignancy in either breast. There has been no suspicious interval change. IMPRESSION: 1. No mammographic evidence of malignancy. 2. Recommend routine screening mammography in one year. BI-RADS Category 1: Negative Reviewed, dictated and finalized at location B.
== END 2024-05-13 13:02 | disposition home or self-care (01) ==
LOC: CHSIMG 13:03
PROVIDERS: PCP Family Medicine; Visit Provider Family Medicine
DX: Z12.31 Encounter for screening mammogram for malignant neoplasm of breast (principal)
CPT/HCPCS: 77063; 77067

== ENCOUNTER 2024-06-25 12:28 | Outpatient (CLI) | payer OTHER, SELFPAY ==
--- NOTE | ~2024-06-25 | US_ITS ---
EXAMINATION: US thyroid DATE: 06/25/2024 12:52 INDICATION: Multiple thyroid nodules. TECHNIQUE: Multiple ultrasound images of the thyroid were obtained. COMPARISON: Ultrasound 01/03/2022 FINDINGS: The right thyroid lobe measures 3.3 x 2.1 x 2.4 cm. The left thyroid lobe is absent. In the right th yroid lobe, there is a 5 mm solid, very hypoechoic, wider than tall nodule with smooth margin without echogenic foci (TI-RADS TR4). In the right thyroid lobe, there is a 7 mm solid, hypoechoic, wider th an tall nodule with ill-defined margin without echogenic foci (TR4). IMPRESSION: 1. Small thyroid nodules, likely not clinically significant. No follow-up is needed. Reviewed, dictated and finalized at location A. IMPRESSION: 1. Small thyroid nodules, likely not clinically significant. No follow-up is ne eded.
[2024-06-25 13:01] LABS: Basophils Absolute Auto 0.06 K/mm3 (0.00-0.10); Basophils Percent Auto 0.7 % (0.0-1.0); Eosinophils Absolute Auto 0.13 K/mm3 (0.02-0.50); Eosinophils Percent Auto 1.6 % (1.0-6.0); Hematocrit 40.5 % (35.0-49.0); Hemoglobin 13.3 g/dL (12.0-15.0); Immature Granulocyte Absolute 0.06 K/mm3 (0.00-0.00); Immature Granulocyte Percent A 0.7 % (0.0-0.0); Lymphocytes Absolute Auto 2.47 K/mm3 (1.10-4.50); Lymphocytes Percent Auto 30.5 % (18.0-42.0); Mean Corpuscular HGB Conc 32.8 g/dL (32-36); Mean Corpuscular Hemoglobin 30.7 pg (27.0-31.0); Mean Corpuscular Volume 93.5 fL (78.0-102.0); Monocytes Absolute Auto 0.58 K/mm3 (0.10-0.90); Monocytes Percent Auto 7.2 % (2.0-11.0); Neutrophils Percent Auto 59.3 % (50.0-70.0); Platelet Count Result 357 K/mm3 (150-420); Red Blood Count 4.33 M/mm3 (4.20-5.40); Red Cell Distribution Width 12.1 % (11.6-14.4); White Blood Count 8.1 K/mm3 (4.8-10.8)
[2024-06-25 13:17] LABS: Hemoglobin A1C 5.8 % (<5.7)
[2024-06-25 14:08] LABS: Alanine Aminotransferase 31 U/L (14-59); Albumin Level 3.8 g/dL (3.4-5.0); Alkaline Phosphatase 132 U/L (46-116); Anion Gap 8 mmol/L (4-12); Aspartate Amino Transferase 19 U/L (15-37); Bilirubin,Total 0.5 mg/dL (0.00-1.00); Blood Urea Nitrogen 17 mg/dL (7-18); Calcium 9.3 mg/dL (8.5-10.1); Carbon Dioxide 29 mmol/L (21-32); Chloride 102 mmol/L (98-108); Cholesterol 201 mg/dL (0-200); Estimated Glomerular Filt Rate 58; Glucose 105 mg/dL (70-99); HDL Direct 72 mg/dL (40-60); Iron 80 ug/dL (50-170); LDL Cholesterol Calculated 101 mg/dL (<130); Osmolality Calculated 289 mOsm/kg (285-295); Percent Iron Saturation 24 % (12-57); Potassium 4.6 mmol/L (3.5-5.1); Sodium 139 mmol/L (136-145); Thyroid Stimulating Hormone 2.72 uIU/mL (0.36-3.74); Total Protein 7.2 g/dL (6.4-8.2); Triglycerides 139 mg/dL (0-150); Vitamin B12 945 pg/mL (193-986)
[2024-06-25 14:09] LABS: Folic Acid > 20.0 ng/mL (8.6->20)
[2024-06-26 11:38] LABS: Vitamin D 25 Hydroxy 34 ng/mL (30-100)
== END 2024-06-25 12:29 | disposition home or self-care (01) ==
PROVIDERS: PCP Family Medicine; Visit Provider Family Medicine
DX: E03.8 Other specified hypothyroidism (principal); I10 Essential (primary) hypertension; F32.A Depression, unspecified; E66.9 Obesity, unspecified
CPT/HCPCS: 36415; 76536; 80053; 80061; 82306; 82607; 82746; 83036; 83540; 83550; 84443; 85025

== ENCOUNTER 2024-09-20 13:32 | Outpatient (CLI) | payer OTHER, SELFPAY ==
--- NOTE | ~2024-09-20 | CT_ITS ---
EXAMINATION:CT lung screening DATE: 09/20/2024 13:53 INDICATION: Tobacco use. 40 pack year history. TECHNIQUE: Computed tomography (CT) of the chest was performed without intravenous contrast. Automate d exposure control and iterative reconstruction technique were employed. The dose-length product (DLP ) was 193.47 mGy-cm. COMPARISON: Chest CT 09/05/2023 FINDINGS: Calcified right lung nodules and calcified right hilar lymph node are consistent with old g ranulomatous disease. There is a 4 mm nodule at left major fissure without change. There is mild atel ectasis bilaterally. No pleural effusion. There is a tracheal diverticulum. There are changes of left hemithyroidectomy. The heart size is normal. There are coronary artery calcifications. No pericardia l effusion. There is a small sliding hiatal hernia. There is mild thoracic spondylosis and severe cer vical spondylosis. IMPRESSION: 1. Lung-RADS category 2: Benign appearance or behavior. Continue annual screening with noncontrast lo w-dose chest CT in 12 months. Reviewed, dictated and finalized at location A. SROOM INSTRUCTOR IMPRESSION: 1. Lung-RADS category 2: Benign appearance or behavior. Continue annual screeni ng with noncontrast low-dose chest CT in 12 months.
== END 2024-09-20 13:33 | disposition home or self-care (01) ==
PROVIDERS: PCP Family Medicine; Visit Provider Internal Medicine Critical Care Medicine
DX: Z12.2 Encounter for screening for malignant neoplasm of respiratory organs (principal); Z87.891 Personal history of nicotine dependence
CPT/HCPCS: 71271

== ENCOUNTER 2024-12-27 10:49 | Outpatient (CLI) | payer OTHER, SELFPAY ==
--- OUTSIDE RECORDS SUMMARY | 2024-12-27 12:48 | XMS_ITS | Continuity of Care Document ---
Author Organization [facility] Address [address] [place] [address] Phone Care Team Providers Care Finish Mill Operator Name Role Phone No Information Unavailable Unavailable Medications Medication Instructions Dosage Effective Dates (start - stop) Status Comments No Drug Therapy Prescribed Advance Directives Directive Yes / No Effective Date File Name No Information Encounters Encounter Description Practice Location Reason(s) For Visit Diagnoses Date Provider Providers Copied on Encounter [facility], [address] [place] [address], [id number], [place] tel:[phone] No Information No Information Family History Family Member Type Diagnosis Age At Onset No Information Payers Payer name Insurance type Covered green party ID Authoriza tion(s) No Information Social [...]
--- OUTSIDE RECORDS SUMMARY | 2024-12-27 12:48 | XMS_ITS | Encounter Summary ---
Author Organization [facility] Address [facility] [place] [address] Care Team Providers Care Group Managing Director Name Role Phone Blas Corcoran MD Primary Care Provider [phone] Sandra Stewart MD Primary Care Provider [phone] Terry Arceo MD Primary Care Provider Encounter Details Date Type Department Care Team (Late st Contact Info) Description 03/13/2019 Abstract [facility] CONVERSION [address] [place] [address] , Generic Conversion, Social History Tobacco Use Types Packs/Day Years Used Date Smoking Tobacco: Former Cigarettes Q uit: 01/2018 Alcohol Use Standard Drinks/Week Comments Yes 0 (1 standard drink = 0.6 oz pur e alcohol) Rare occassion Comments Unknown Sex and Gender Information Value Date Recorded Sex Assigned at Female 06/30/2020 9:15 PM CDT Legal Sex Female 8:52 PM CDT Gender Identity Female 06/30/2020 9:15 PM CDT Sexual Orientation Straight 06/30/2020 9: 15 PM CDT documented as of this encounter Plan of Treatment Not on file documented as of this encounter Visit Diagnoses Not on filedocumented in this encounter Care Teams Group Managing Director Relationship Specialty Start Date End Date Blas Corcoran MD [address] [place] [phone] PCP - General FAMILY PRACTICE 10/12/18 08/03/20 Sandra Stewart MD [address] [place] [phone] PCP - General INTERNAL MEDICINE 08/04/20 03/20/23 Terry Arceo MD [address] [place] [phone] PCP - General FAMILY PRACTICE 03/21/23 documented as of this encounter
--- OUTSIDE RECORDS SUMMARY | 2024-12-27 12:48 | XMS_ITS | Encounter Summary ---
Author Organization [facility] Address [facility] [place] [address] Care Team Providers Care Stem Assembler Name Role Phone Blas Corcoran MD Primary Care Provider [phone] Sandra Stewart MD Primary Care Provider [phone] Terry Arceo MD Primary Care Provider [phone] Encounter Details Date Type Department Care Team (Latest Contact Info) Description 08/11/2018 Abstract [facility] Dee Alfonso MD Social History Tobacco Use Types Packs/Day Years Used Date Smoking Tobacco: Smoker, Current Status Unknown Comments Unknown Sex and Gender Information Value [...] on filedocumented in this encounter Care Teams Stem Assembler Relationship Specialty Start Date End Date Blas Corcoran MD [address] [place] [phone] PCP - General FAMILY PRACTICE 10/12/18 08/03/20 Sandra Stewart MD [address] [place] [address] PCP - General INTERNAL MEDICINE 08/04/20 03/20/23 Terry Arceo MD [address] [place] [phone] PCP - General FAMILY PRACTICE 03/21/23 documented as of this encounter
--- OUTSIDE RECORDS SUMMARY | 2024-12-27 12:48 | XMS_ITS | Clinical Summary ---
Author Organization [facility] Address [address] [place] [address] Care Team Providers Care Link Trainer Maintenance Worker Name Role Phone Angella Gould MD Primary Care Provider Allergies Active Allergy Reactions Criticality Noted Date Comments Chocolate Unknown 03/15/2016 Sulfa (Sulfonamide Antibiotics) Rash Medium 03/06 Sulfanilamide Medications omeprazole (PriLOSEC) 20 mg capsule Take 1 capsule (20 mg total) by mouth daily 10/12/2018 Active lisinopriL (PRINIVIL,ZESTR [place]) 10 mg tablet 05/12/2023 Active atorvastatin (LIPITOR) 20 mg tablet 05/12/2023 Active multivitamin tablet Take by mouth Active ALPRAZolam (XANAX) 1 mg tablet 10/29/2022 Active ketorolac (ACULAR) 0.5 % ophthalmic solution 02/19/2023 Active lysine HCL 500 mg capsule Take by mouth Active ofloxacin (OCUFLOX) 0.3 % ophthalmic solution 02/19/2023 Active prednisoLONE acetate (PRED FORTE) 1 % ophthalmic suspension 02/20/2023 Active Active Problems Problem Noted Date Diagnosed Date Pain of left knee and lower leg 05/08/2023 Strain of gastrocnemius muscle of left lower ext remity 03/27/2023 Obesity, morbid, BMI 40.0-49.9 10/12/2018 Dyslipidemia 10/12/2018 Acquired hypothyroidism 10/12/2018 Radial 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/04/2012 Overview (01/08/2017): Radial neuropathy Carpal tunnel syndrome 02/04/2012 Overview (01/10/2017): Carpal tunnel syndrome Surgical History Surgery Date Site/Laterality Comments THYROIDECTOMY 2010 Thyroidectomy KNEE ARTHROSCOPY CATARACT EXTRACTION Medical History Medical History Date Comments Gastric ulcer stomach ulcer Hx Other Medical knee surgery Disorder of thyroid Thyroid dise ase Hyperlipidemia Hyperlipidemia Hypertension Gastric reflux Migraines Family History Medical History Relation Name Comments Heart failure Father Congestive hea rt failure; Alzheimer's disease Mother Alzheime r's disease; Cancer Mother Cancer; Diabetes Mother Diabetes mellit us; Arthritis Other Diabetes Other Family history of Diabetes mellitus; Hypertension Other Relation Name Status Comments Father Mother Other Social History Tobacco Use Types Packs/Day Years Used Date Smoking Tobacco: Former Cigarettes Smokeless Tobacco: Never Tobacco Cessation:Counseling Given: Not Answered Alcohol Use Standard Drinks/Week Comments No 0 (1 standard drink = 0.6 oz pur e alcohol) Comments Unknown Sex and Gender Information Value Date Recorded Sex Assigned at Not on file Legal Sex Female 2:22 AM LINER WORKER Gender Identity Not on file Sexual Orientation Not on file Obstetrics History Last Filed Vital Signs Vital Sign Reading Time Taken Comments Blood Pressure 110/74 05/27/2023 1:06 PM CDT Pulse 84 05/27/2023 1:06 PM CDT Temperature - - Respiratory Rate - - Oxygen Saturation - - Inhaled Oxygen Concentration - - Weight 114.8 kg (253 lb) 05/27/2023 1:06 PM CDT Height 162.6 cm (5' 4 ) 05/27/2023 1:06 PM CDT Body Mass Index 43.43 05/27/2023 1:06 PM CDT Plan of Treatment Health Maintenance Due Date Last Done Comments Breast Cancer Screening-Mammogram 1963 Cervical Cancer Screening 1963 Colon Cancer Screening-Colonoscopy 1963 Depression Screening 1963 Hepatitis C Screening 1963 DTaP/Tdap/Td Vaccine (1 - Tdap) 1974 Hepatitis B Screening 1981 Regular Well Visit/Exam 18-64 1981 Zoster Vaccine (1 of 2) 2013 Covid-19 Vaccine (2023-2 5 season) 2024 10/26/2021, 03/14/2021, 02/21/2021 Influenza Vaccine (#1) 2024 Pneumococcal vaccine <65 Aged Out No longer eligible based on patient's age to complete this topic Insurance [facility] Care Teams Link Trainer Maintenance Worker Relationship Specialty Start Date End Date Angella Gould MD [address] [place] [phone] PCP - General Family Medicine 04/29/23
--- OUTSIDE RECORDS SUMMARY | 2024-12-27 12:48 | XMS_ITS | Referral Summary ---
Author Organization [facility] Address [address] [place] [address] Care Team Providers Care Printing Pressman Name Role Phone Angella Gould MD Primary [...] syndrome 02/04/2012 Overview (01/10/2017): Carpal tunnel syndrome Social History Tobacco Use Types Packs/Day Years Used Date Smoking Tobacco: Former Cigarettes Smokeless Tobacco: Never Tobacco Cessation:Counseling Given: Not Answered Alcohol Use Standard Drinks/Week Comments No 0 (1 standard drink = 0.6 oz pur e alcohol) Comments Unknown Sex and Gender Information Value Date Recorded Sex Assigned at Not on file Legal Sex Female 2:22 AM LVN Gender Identity Not on file Sexual Orientation Not on file Last Filed Vital Signs Vital Sign Reading [...] 05/27/2023 1:06 PM CDT Plan of Treatment Not on file Insurance [facility] Care Teams Printing Pressman Relationship Specialty Start Date End Date Angella Gould MD [address] [place], [place] [phone] PCP - General Family Medicine 04/29/23
--- OUTSIDE RECORDS SUMMARY | 2024-12-27 12:48 | XMS_ITS | Clinical Summary ---
Author Organization [facility] Address [address] [place] [address] Care Team Providers Care Child Protective Investigator Name Role Phone Terry Arceo MD Primary Care Provider Allergies Active Allergy Reactions Criticality Noted Date Comments Chocolate Unknown 03/15/2016 Sulfa Antibiotics Unknown 03/15/2016 Sulfacetamide Unknown 11/05/2017 Medications atorvastatin 10 MG tablet Take 1 tablet (10 mg total) by mouth daily. 10/08/2018 Active omeprazole 20 MG capsule Take 1 capsule (20 mg total) by mouth daily. 30 capsule 10/12/2018 Active multi vitamin/mineral s tablet Take 1 tablet by mouth daily. Active ALPRAZolam (XANAX) 1 MG tablet 10/29/2022 Active Active Problems Problem Noted Date Diagnosed Date Pain of left knee and lower leg 05/08/2023 Strain of gastrocnemius musc le of left lower extremity, subsequent encounter 03/27/2023 Acquired hypothyroidism 10/12/2018 Obesity, morbid, BMI 40.0-49.9 10/12/2018 Dyslipidemia 10/12/2018 Family History Medical History Relation Comments Heart Disease Father Alzheimers Mother Colon Cancer Mother Relation Status Comments Father (Age 83) Mother (Age 82) Social History Tobacco Use Types Packs/Day Years Used Date Smoking Tobacco: Former Cigarettes Q uit: 01/2018 Smokeless Tobacco: Never Alcohol Use Standard Drinks/Week Comments Not Currently 0 (1 standard drink = 0.6 oz pur e alcohol) Rare occassion Comments No Sex and Gender Information Value Date Recorded Sex Assigned at Female 06/30/2020 9:15 PM CDT Legal Sex Female 8:52 PM CDT Gender Identity Female 06/30/2020 9:15 PM CDT Sexual Orientation Straight 06/30/2020 9: 15 PM CDT Last Filed Vital Signs Vital Sign Reading Time Taken Comments Blood Pressure 112/84 03/21/2023 5:06 PM CDT Pulse 88 03/21/2023 5:06 PM CDT Temperature 36.7 C (98 F) 03/21/2023 5:06 PM CDT Respiratory Rate 20 03/21/2023 5:06 PM CDT Oxygen Saturation 100% 03/21/2023 5:06 PM CDT Inhaled Oxygen Concentration - - Weight 113.4 kg (250 lb) 05/08/2023 1:26 PM CDT Height 163.8 cm (5' 4.5 ) 05/08/2023 1:26 PM CDT Body Mass Index 42.25 05/08/2023 1:26 PM CDT Plan of Treatment Health Maintenance Due Date Last Done Comments Cervical Cancer Screening Pa p Smear (Age 30 to 64) Every 3 Years 1963 Colorectal Cancer Screening Colonoscopy (10 Years) 1963 Annual Physical 1966 Hepatitis C 1981 DTaP, Tdap and Td Vaccines ( 1 - Tdap) 1982 Cervical Cancer Screening Pa p with HPV Testing (Age 30 to 64) Every 5 Years 1993 Cervical Cancer Screening with HPV 1993 Mammogram Screening 2003 Zoster Vaccines (1 of 2) 2013 RSV Immunization or 60+ Years (1 - Risk 60-74 years 1-dose series) 2023 COVID-19 Vaccine ( - 2023-2 5 season) 2024 Influenza Adult (#1) 2024 Meningococcal B Vaccine Aged Out No l onger eligible based on patient's age to complete this topic Meningococcal Vaccine Aged Out No maddi ravindra eligible based on patient's age to complete this topic Pneumococcal Vaccine: Pediat rics (0 to 5 Years) and At-Risk Patients (6 to 64 Years) Aged Out No longer eligible b ased on patient's age to complete this topic RSV Immunizations Under 20 Months Aged Out No longer eligible based on patient's age to complete this topic Insurance [facility] Care Teams Child Protective Investigator Relationship Specialty Start Date End Date Terry Arceo MD [address] [place] [phone] PCP - General FAMILY PRACTICE 03/21/23
--- OUTSIDE RECORDS SUMMARY | 2024-12-27 12:48 | XMS_ITS | Clinical Summary ---
Author Organization [facility] Address [address] [place] [address] Phone Care Team Providers Care Bed Spring Maker Name Role Phone Nathan Perez MD Primary Care Provider [phone] Allergies Active Allergy Reactions Criticality Noted Date Comments Sulfa Antibiotics Rash 11/21/2021 Medications omeprazole (PriLOSEC) 20 MG CAPSULE DELAYED RELEASE Take 20 mg by mouth daily. Active atorvastatin (LIPITOR) 10 MG Tablet Take 10 mg by mouth daily. Active lisinopril (PRINIVIL, ZESTRIL) 20 MG Tablet Take 20 mg by mouth daily. Active Lysine 500 MG Capsule Take by mouth. Active Multiple Vitamin (MULTIVITAMIN PO) Take by mouth. Active Family History Medical History Relation Name Comments Colon Cancer Mother Relation Name Status Comments Father Mother Social History Tobacco Use Types Packs/Day Years Used Date Smoking Tobacco: Former Cigarettes 0 10/06/1975 - 10/06/2015 Smokeless Tobacco: Never Alcohol Use Standard Drinks/Week Comments Yes 0 (1 standard drink = 0.6 oz pur e alcohol) occasional Comments Unknown Sex and Gender Information Value Date Recorded Sex Assigned at Not on file Legal Sex Female 10:24 AM DRY BOX OPERATOR Gender Identity Not on file Sexual Orientation Not on file Last Filed Vital Signs Vital Sign Reading Time Taken Comments Blood Pressure 130/84 01/21/2022 2:35 PM CDT Pulse 99 01/21/2022 2:35 PM CDT Temperature 36.6 C (97.9 F) 01/21/2022 2:35 PM CDT Respiratory Rate 16 01/21/2022 2:35 PM CDT Oxygen Saturation 98% 01/21/2022 2:35 PM CDT Inhaled Oxygen Concentration - - Weight 110.2 kg (243 lb) 01/21/2022 2:35 PM CDT Height 162.6 cm (5' 4 ) 01/21/2022 2:35 PM CDT Body Mass Index 41.71 01/21/2022 2:35 PM CDT Plan of Treatment Health Maintenance Due Date Last Done Comments Hepatitis C Virus (HCV) Screening 1963 Mammogram 1963 TdaP Immunization 1963 Pap Smear 01/04/1984 Cervical Cancer Screening (CCS) 1993 HPV/Cotest 1993 Colonoscopy 01/04/2008 Colorectal Cancer Screening 01/04/2008 Cologuard 2013 Immunochemical Fecal Occult Blood 2013 Pneumococcal Immunization (5 0+ years) (1 of 1 - PCV) 2013 Zoster Immunization (1 of 2) 2013 Influenza Immunization (#1) 2024 SARS-COV-2 Immunization ( season) 2024 10/26/2021, 03/14/2021, 02/21/2021 Respiratory Syncytial Virus (RSV) Immunization (Adult) (1 - 1-dose 75+ series) 2038 Hepatitis B Immunization Aged Out No longer eligible based on patient's age to complete this topic Meningococcal Immunization (ACWY) Aged Out No longer eligible b ased on patient's age to complete this topic Rotavirus Immunization Aged Out No lo nger eligible based on patient's age to complete this topic Insurance [employer] Care Teams Bed Spring Maker Relationship Specialty Start Date End Date Nathan Perez MD [address] [place] [address] PCP - General Family Medicine 11/21/21
== END 2024-12-27 10:50 | disposition home or self-care (01) ==
LOC: CHSLAB 10:51
PROVIDERS: PCP Family Medicine; Visit Provider Family Medicine
DX: K21.9 Gastro-esophageal reflux disease without esophagitis (principal)
CPT/HCPCS: 83013

== ENCOUNTER 2024-12-28 09:49 | Outpatient (CLI) | payer OTHER, SELFPAY ==
[2024-12-28 10:35] LABS: Alanine Aminotransferase 30 U/L (14-59); Albumin Level 3.5 g/dL (3.4-5.0); Alkaline Phosphatase 134 U/L (46-116); Anion Gap 8 mmol/L (4-12); Aspartate Amino Transferase 16 U/L (15-37); Bilirubin,Total 0.4 mg/dL (0.00-1.00); Blood Urea Nitrogen 14 mg/dL (7-18); Calcium 9.3 mg/dL (8.5-10.1); Carbon Dioxide 29 mmol/L (21-32); Chloride 105 mmol/L (98-108); Estimated Glomerular Filt Rate > 60; Glucose 107 mg/dL (70-99); Iron 82 ug/dL (50-170); Osmolality Calculated 294 mOsm/kg (285-295); Percent Iron Saturation 23 % (12-57); Potassium 4.7 mmol/L (3.5-5.1); Sodium 142 mmol/L (136-145); Total Protein 6.9 g/dL (6.4-8.2)
[2024-12-28 11:14] LABS: Vitamin B12 803 pg/mL (193-986)
[2024-12-28 11:15] LABS: Folic Acid > 20.0 ng/mL (8.6->20)
--- OUTSIDE RECORDS SUMMARY | 2024-12-28 11:15 | XMS_ITS | Encounter Summary ---
Author Organization [facility] Address [facility] [place] [address] Care Team Providers Care Video Editing Intern Name Role Phone Blas Corcoran MD Primary Care Provider [phone] Sandra Stewart MD Primary Care Provider [phone] Terry Arceo MD Primary Care Provider [phone] Encounter Details Date Type Department Care Team (Latest Contact Info) Description 08/11/2018 Abstract [facility] Medical Group , Dee Flores MD Social History Tobacco Use Types Packs/Day [...] on filedocumented in this encounter Care Teams Video Editing Intern Relationship Specialty Start Date End Date Blas Corcoran MD [address] [place] [phone] PCP - General FAMILY PRACTICE 10/12/18 08/03/20 Sandra Stewart MD [address] [place] [phone] PCP - General INTERNAL MEDICINE 08/04/20 03/20/23 Terry Arceo MD [address] [place] [phone] PCP - General FAMILY PRACTICE 03/21/23 documented as of this encounter
--- OUTSIDE RECORDS SUMMARY | 2024-12-28 11:15 | XMS_ITS | Clinical Summary ---
Author Organization [facility] Address [address] [place] [address] Care Team Providers Care Retrieval Specialist Name Role Phone Terry Arceo MD Primary Care Provider [phone] Allergies Active Allergy Reactions Criticality Noted Date [...] age to complete this topic Insurance [facility] Care Teams Retrieval Specialist Relationship Specialty Start Date End Date Terry Arceo MD [address] [place] [phone] PCP - General FAMILY PRACTICE 03/21/23
--- OUTSIDE RECORDS SUMMARY | 2024-12-28 11:15 | XMS_ITS | Referral Summary ---
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
--- OUTSIDE RECORDS SUMMARY | 2024-12-28 11:15 | XMS_ITS | Clinical Summary ---
Author Organization [facility] Address [address] [place] [address] Care Team Providers Care Laborer Concrete Paving Name Role Phone Angella Gould MD Primary [...] on file Legal Sex Female 2:22 AM PICKLING SOLUTION MAKER Gender Identity Not on file Sexual Orientation [...] patient's age to complete this topic Insurance [facility] Care Teams Laborer Concrete Paving Relationship Specialty Start Date End Date Angella Gould MD [address] [place] [phone] PCP - General Family Medicine 04/29/23
--- OUTSIDE RECORDS SUMMARY | 2024-12-28 11:15 | XMS_ITS | Continuity of Care Document ---
Author Organization [facility] Address [address] [place] [address] Phone Care Team Providers Care Packaging Line Operator Name Role Phone No Information Unavailable Unavailable Medications Medication Instructions Dosage Effective Dates (start - stop) Status Comments No Drug Therapy Prescribed Advance Directives Directive Yes / No Effective Date File Name No Information Encounters Encounter Description Practice Location Reason(s) For Visit Diagnoses Date Provider Providers Copied on Encounter [facility], [address] [place] [address], [address], [place] tel:[phone] No Information No Information Family History Family Member Type Diagnosis Age At Onset No Information Payers Payer name Insurance type Covered republican ID Authoriza tion(s) No Information Social History [...]
--- OUTSIDE RECORDS SUMMARY | 2024-12-28 11:15 | XMS_ITS | Encounter Summary ---
Author Organization [facility] Address [facility] [place] [address] Care Team Providers Care Plastic Mould Maker Name Role Phone Blas Corcoran MD Primary Care Provider [phone] Sandra Stewart MD Primary Care Provider [phone] Terry Arceo MD Primary Care Provider Encounter Details Date Type Department Care Team (Late st Contact Info) Description 03/13/2019 Abstract [facility] [address] [place] [address] , Generic Conversion, Social History Tobacco Use [...] on filedocumented in this encounter Care Teams Plastic Mould Maker Relationship Specialty Start Date End Date Blas Corcoran MD [address] [place] [phone] PCP - General FAMILY PRACTICE 10/12/18 08/03/20 Sandra Stewart MD [address] [place] [phone] PCP - General INTERNAL MEDICINE 08/04/20 03/20/23 Terry Arceo MD [address] [place] [phone] PCP - General FAMILY PRACTICE 03/21/23 documented as of this encounter
--- OUTSIDE RECORDS SUMMARY | 2024-12-28 11:15 | XMS_ITS | Clinical Summary ---
Author Organization [facility] Address [address] [place] [address] Phone Care Team Providers Care B2B Appointment Setter Name Role Phone Nathan Perez MD Primary Care Provider [phone] Allergies Active Allergy Reactions Criticality Noted Date [...] on file Legal Sex Female 10:24 AM OUTSIDE RIGGER Gender Identity Not on file Sexual Orientation [...] this topic Insurance [employer] Care Teams B2B Appointment Setter Relationship Specialty Start Date End Date Nathan Perez MD [address] [place] [address] PCP - General Family Medicine 11/21/21
== END 2024-12-28 09:50 | disposition home or self-care (01) ==
LOC: CHSLAB 09:51
PROVIDERS: PCP Family Medicine; Visit Provider Family Medicine
DX: R73.01 Impaired fasting glucose (principal); E03.8 Other specified hypothyroidism; I10 Essential (primary) hypertension; K21.9 Gastro-esophageal reflux disease without esophagitis; E78.5 Hyperlipidemia, unspecified
CPT/HCPCS: 36415; 80053; 82607; 82746; 83036; 83540; 83550; 84443

== ENCOUNTER 2025-06-07 13:39 | Outpatient (CLI) | payer OTHER, SELFPAY ==
--- OUTSIDE RECORDS SUMMARY | 1999-10-05 19:00 | XMS_ITS | Continuity of Care Document ---
Author Organization [facility] Address [address] [place] [address] Phone Care Team Providers Care Cabana Attendant Name Role Phone No Information Unavailable Unavailable Medications Medication Instructions Dosage Effective Dates (start - stop) Status Comments No Drug Therapy Prescribed Advance Directives Directive Yes / No Effective Date File Name No Information Encounters Encounter Description Practice Location Reason(s) For Visit Diagnoses Date Provider Providers Copied on Encounter [facility], [address] [place] [address], [id number], [place] tel:[phone] No Information No Information Family History Family Member Type Diagnosis Age At Onset No Information Payers Payer name Insurance type Covered alliance party ID Authoriza tion(s) No Information Social History Type Description Quantity Date Captured Comments Sex Female Smoking Status No Information Chief Complaint And Reason For Visit No Information History Of Present Illness Encounter Date Complaint History Of Prese nt Illness No Information Medications Administered Medication Instructions Dosage Effective Dates (start - stop) Status Comments No Drug Therapy Prescribed Instructions Date Instruction Additional Infor mation No Information Assessments Type Assessment Date No Information
--- NOTE | ~2025-06-07 | MM_ITS ---
EXAMINATION: MM screening [facility] BI w kian HISTORY: Screening TECHNIQUE: Craniocaudal and mediolateral oblique 3-D tomosynthesis images were obtained and synthetic 2-D images were generated. CAD analysis was submitted and interpreted. COMPARISON: Mammograms from 05/13/2024 and 05/12/2023 BREAST PARENCHYMAL COMPOSITION: There are scattered areas of fibroglandular density. FINDINGS: There is no evidence of suspicious mass, calcification, or architectural distortion to suggest malignancy. There has been no suspicious interval change. IMPRESSION: 1. No mammographic evidence of malignancy. Recommend routine screening mammography in one year. BI-RADS Category 2: Benign finding(s) Reviewed, dictated and finalized at location Q. IMPRESSION: 1. No mammographic evidence of malignancy. Recommend routine screening mammogra phy in one year. BI-RADS Category 2: Benign finding(s)
--- OUTSIDE RECORDS SUMMARY | 2025-06-07 13:53 | XMS_ITS | Clinical Summary ---
Author Organization [facility] Address [address] [place] [address] Phone Care Team Providers Care General Passenger Agent Name Role Phone Nathan Perez MD Primary Care Provider [phone] Allergies Active Allergy Reactions Criticality Noted Date [...] on file Legal Sex Female 10:24 AM OB GYN Gender Identity Not on file Sexual Orientation [...] 2:35 PM CDT Height 162.6 cm (5' 4) 01/21/2022 2:35 PM CDT Body Mass Index 41.71 01/21/2022 2:35 PM CDT Plan of Treatment Health Maintenance Due Date Last Done Comments Hepatitis C Virus (HCV) Screening 1963 TdaP Immunization 1963 Pap Smear 01/04/1984 Cervical Cancer Screening (CCS) 1993 HPV/Cotest 1993 Cologuard 01/04/2008 Colonoscopy 01/04/2008 Colorectal Cancer Screening 01/04/2008 Immunochemical Fecal Occult Blood 01/04/2008 Pneumococcal Immunization (5 0+ years) (1 of 1 - PCV) 2013 Zoster Immunization (1 of 2) 2013 SARS-COV-2 Immunization (4 - season) 2024 10/26/2021, 03/14/2021, 02/21/2021 Influenza Immunization (#1) 2025 Respiratory Syncytial Virus (RSV) Immunization (Adult) (1 - 1-dose 75+ series) 2038 Hepatitis B Immunization Aged Out No longer eligible based on patient's age to complete this topic Human Papillomavirus (HPV) Immunization Aged Out No longer eligible b ased on patient's age to complete this topic Meningococcal Immunization (ACWY) Aged Out No longer eligible b ased on patient's age to complete this topic Rotavirus Immunization Aged Out No lo nger eligible based on patient's age to complete this topic Insurance [employer] Care Teams General Passenger Agent Relationship Specialty Start Date End Date Nathan Perez MD [address] [place] [address] PCP - General Family Medicine 11/21/21
--- OUTSIDE RECORDS SUMMARY | 2025-06-07 13:53 | XMS_ITS | Clinical Summary ---
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
== END 2025-06-07 13:40 | disposition home or self-care (01) ==
LOC: CHSIMG 13:41
PROVIDERS: PCP Family Medicine; Visit Provider Family Medicine
DX: Z12.31 Encounter for screening mammogram for malignant neoplasm of breast (principal)
CPT/HCPCS: 77063; 77067

== ENCOUNTER 2025-06-28 08:02 | Outpatient (CLI) | payer OTHER, SELFPAY ==
--- OUTSIDE RECORDS SUMMARY | 2025-06-28 08:19 | XMS_ITS | Clinical Summary ---
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
--- OUTSIDE RECORDS SUMMARY | 2025-06-28 08:19 | XMS_ITS | Encounter Summary ---
Author Organization [facility] Address [facility] [place] [address] Care Team Providers Care Mother Repairer Name Role Phone Blas Corcoran MD Primary Care Provider [phone] Sandra Stewart MD Primary Care Provider [phone] Terry Arceo MD Primary Care Provider Encounter Details Date Type Department Care Team (Late st Contact Info) Description 03/13/2019 Abstract [facility] [address] [place] [address] , Generic Conversion, Social History Tobacco Use [...] on filedocumented in this encounter Care Teams Mother Repairer Relationship Specialty Start Date End Date Blas Corcoran MD [address] [place] [phone] PCP - General FAMILY PRACTICE 10/12/18 08/03/20 Sandra Stewart MD [address] [place] [phone] PCP - General INTERNAL MEDICINE 08/04/20 03/20/23 Terry Arceo MD [address] [place] [phone] PCP - General FAMILY PRACTICE 03/21/23 documented as of this encounter
--- OUTSIDE RECORDS SUMMARY | 2025-06-28 08:19 | XMS_ITS | Clinical Summary ---
Author Organization [facility] Address [address] [place] [address] Care Team Providers Care Baseball Glove Shaper Name Role Phone Terry Arceo MD Primary [...] 1:26 PM CDT Height 163.8 cm (5' 4.5) 05/08/2023 1:26 PM CDT Body Mass Index [...] Screening with HPV 1993 Mammogram Screening 2003 Pneumococcal Vaccine: 50+ Ye ars (1 of 1 - PCV) 2013 Zoster Vaccines (1 of 2) 2013 RSV Immunization or 60+ Years (1 - Risk 60-74 years 1-dose series) 2023 COVID-19 Vaccine (1 - 2023-2 5 season) 2025 Meningococcal B Vaccine Aged Out No l onger eligible based on patient's age to complete this topic Meningococcal Vaccine Aged Out No maddi ravindra eligible based on patient's age to complete this topic RSV Immunizations Under 20 Months Aged Out No longer eligible based on patient's age to complete this topic Insurance [facility] Care Teams Baseball Glove Shaper Relationship Specialty Start Date End Date Terry Arceo MD [address] [place] [phone] PCP - General FAMILY PRACTICE 03/21/23
--- OUTSIDE RECORDS SUMMARY | 2025-06-28 08:19 | XMS_ITS | Encounter Summary ---
Author Organization [facility] Address [facility] [place] [address] Care Team Providers Care Flanging Operator Name Role Phone Blas Corcoran MD Primary Care Provider [phone] Sandra Stewart MD Primary Care Provider [phone] Terry Arceo MD Primary Care Provider [phone] Encounter Details Date Type Department Care Team (Latest Contact Info) Description 08/11/2018 Abstract [facility] Dee Alfonso MD Social History [...] on filedocumented in this encounter Care Teams Flanging Operator Relationship Specialty Start Date End Date Blas Corcoran MD [address] [place] [phone] PCP - General FAMILY PRACTICE 10/12/18 08/03/20 Sandra Stewart MD [address] [place] [phone] PCP - General INTERNAL MEDICINE 08/04/20 03/20/23 Terry Arceo MD [address] [place] [phone] PCP - General FAMILY PRACTICE 03/21/23 documented as of this encounter
--- OUTSIDE RECORDS SUMMARY | 2025-06-28 08:19 | XMS_ITS | Clinical Summary ---
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
[2025-06-28 09:05] LABS: Hemoglobin A1C 5.9 % (<5.7); Iron 92 ug/dL (37-170)
[2025-06-28 09:07] LABS: Alanine Aminotransferase 20 U/L (6-35); Albumin Level 4.4 g/dL (3.5-5.1); Alkaline Phosphatase 109 U/L (38-126); Anion Gap 10 mmol/L (4-12); Aspartate Amino Transferase 25 U/L (14-36); Bilirubin,Total 0.6 mg/dL (0.2-1.3); Blood Urea Nitrogen 13 mg/dL (7-17); Calcium 9.9 mg/dL (8.4-10.2); Carbon Dioxide 27 mmol/L (22-30); Chloride 107 mmol/L (98-107); Cholesterol 187 mg/dL (0-200); Estimated Glomerular Filt Rate > 60; Glucose 101 mg/dL (65-110); HDL Direct 62 mg/dL; Osmolality Calculated 298 mOsm/kg (285-295); Potassium 4.8 mmol/L (3.4-5.0); Sodium 144 mmol/L (137-145); Total Protein 7.9 g/dL (6.3-8.2); Triglycerides 173 mg/dL (<150)
[2025-06-28 09:14] LABS: Percent Iron Saturation 28 % (20-50)
[2025-06-28 09:22] LABS: Free T3 3.89 pg/mL (2.18-3.98)
[2025-06-28 09:24] LABS: Free T4 Free Thyroxine 1.03 ng/dL (0.78-2.19)
[2025-06-28 09:38] LABS: Thyroid Stimulating Hormone 4.420 uIU/mL (0.465-4.680)
[2025-06-28 10:14] LABS: Vitamin B12 884.0 pg/mL (239-931)
== END 2025-06-28 08:03 ==
PROVIDERS: PCP Family Medicine; Visit Provider Family Medicine
DX: E78.5 Hyperlipidemia, unspecified (principal); E03.8 Other specified hypothyroidism; K21.9 Gastro-esophageal reflux disease without esophagitis; I10 Essential (primary) hypertension; R73.01 Impaired fasting glucose
CPT/HCPCS: 36415; 80053; 80061; 82607; 82746; 83036; 83540; 83550; 84439; 84443; 84481

== ENCOUNTER 2025-09-22 12:14 | Outpatient (CLI) | payer OTHER, SELFPAY ==
--- NOTE | ~2025-09-22 | CT_ITS ---
EXAMINATION:CT lung screening DATE: 09/22/2025 12:31 INDICATION: Screening TECHNIQUE: Computed tomography (CT) of the chest was performed without intravenous contrast. The dose-length product (DLP) was 218.99 mGy-cm. COMPARISON: September 20, 2024 FINDINGS: Stable radiographically benign 4 mm left major fissure pleural nodule or small lymph node. No new nodules or masses. No gross acute intrathoracic process. Coronary artery calcifications noted. Small hiatal hernia unchanged. Degenerative changes throughout the thoracic spine. No acute process seen in the visualized upper abdomen bony thorax or extrathoracic soft tissues. IMPRESSION: 1. No new nodules or masses. Lung RADS 2. Correlate with follow-up low-dose lung cancer screening chest CT in 12 months. 2. Other chronic findings as above. Reviewed, dictated and finalized at location A. R MAKING SUPERVISOR IMPRESSION: 1. No new nodules or masses. Lung RADS 2. Correlate with follow-up low-dose tomas g cancer screening chest CT in 12 months. 2. Other chronic findings as above.
--- OUTSIDE RECORDS SUMMARY | 2025-09-22 13:15 | XMS_ITS | Clinical Summary ---
Author Organization [facility] Address [address] [place] [address] Phone Care Team Providers Care Lamp Wirer Name Role Phone Nathan Perez MD Primary Care Provider [phone] Allergies Active Allergy Reactions Criticality Noted Date [...] Years Used Date Smoking Tobacco: Former Cigarettes 40 0 10/06/1975 - 10/06/2015 Smokeless Tobacco: Never Alcohol Use Standard Drinks/Week Comments Yes 0 (1 standard drink = 0.6 oz pur e alcohol) occasional Comments Unknown Sex and Gender Information Value Date Recorded Sex Assigned at Not on file 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
--- OUTSIDE RECORDS SUMMARY | 2025-09-22 13:15 | XMS_ITS | Clinical Summary ---
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
== END 2025-09-22 12:15 | disposition home or self-care (01) ==
LOC: CHSIMG 12:15
PROVIDERS: PCP Family Medicine; Visit Provider Family Medicine
DX: Z12.2 Encounter for screening for malignant neoplasm of respiratory organs (principal); Z87.891 Personal history of nicotine dependence
CPT/HCPCS: 71271